=== PATIENT | male | born 1980 | race Caucasian/White ===

== ENCOUNTER 2018-03-14 18:58 | Emergency (ER) | payer SELFPAY ==
[~2018-03-14] VITALS: Ht 177.8 cm; Wt 182.9 kg
[2018-03-14 19:07] VITALS: Ht 177.8 cm; Wt 182.9 kg
[2018-03-14 20:10] LABS: BASOPHIL % 0.8 % (0-2); PLATELET COUNT 226 x10^3mcL (130-400); RED CELL DISTRIBUTION WIDTH 13.3 % (11.5-14.5)
[2018-03-14 20:16] LABS: CALCIUM 8.9 mg/dL (8.5-10.1); CARBON DIOXIDE 30.2 mmol/L (21-32); CHLORIDE SERUM 102 mmol/L (98-107); CREATININE SERUM 0.9 mg/dL (0.7-1.3); GFR1 > 60 mL/min; GLUCOSE SERUM 105 mg/dL (74-106); POTASSIUM SERUM 3.3 mmol/L (3.5-5.1); SODIUM SERUM 139 mmol/L (136-145)
[2018-03-14 20:20] LABS: ALBUMIN 3.8 g/dL (3.4-5.0); ALKALINE PHOSPHATASE 82 U/L (46-116); ALT/SGPT 77 U/L (16-63); AST/SGOT 47 U/L (15-37); BILIRUBIN TOTAL 0.68 mg/dL (0.20-1.00); TOTAL PROTEIN, SERUM 7.6 g/dL (6.4-8.2)
[2018-03-14 21:36] LABS: AMPHETAMINE QUAL UR NONE DETECTED (NEG <=1000)
[2018-03-14 22:33] VITALS: BP 158/89
== END 2018-03-14 22:33 | disposition home or self-care (01) ==
LOC: ED 18:58
PROVIDERS: Emergency Medicine
DX: I10 Essential (primary) hypertension (principal); R07.89 Other chest pain; R06.02 Shortness of breath; E66.9 Obesity, unspecified; R60.0 Localized edema; Z68.43 Body mass index [BMI] 50.0-59.9, adult
CPT/HCPCS: 83880; J3490